=== PATIENT | female | born 1970 | race Caucasian/White ===

== ENCOUNTER 2017-02-07 08:25 | Emergency (ER) | payer OTHER ==
[2017-02-07 08:33] VITALS: BP 141/71; PULSE 71; TEMP 98; BMI 38.0
--- NOTE | 2017-02-07 09:27 | PDOC ---
History of Present Illness - General Chief Complaint: Injury Stated Complaint: INJURY/lac Time Seen by Provider: 02/07/17 09:23 History Source: Patient Exam Limitations: No Limitations - History of Present Illness Initial Comments: CHIEF COMPLAINT: 46 y/o afebrile female with PMH NIDDM here with laceration to her right arm. HISTORY OF PRESENT ILLNESS: The patient accidentally cut herself with a knife at work this morning. She is not up to date on tetanus. She denies all other symptoms and complaints. Vital signs on arrival are within normal limits. REVIEW OF SYSTEMS: GENERAL/CONSTITUTIONAL: No fever/chills. No weakness. No weight change. MUSCULOSKELETAL: No joint or muscle swelling or pain. No neck or back pain. SKIN: +laceration to right arm. NEUROLOGIC: No headache, vertigo, loss of consciousness, or loss of sensation. PHYSICAL EXAM: VITAL_SIGNS: within normal limits GENERAL_APPEARANCE: alert, cooperative, no obvious discomfort. MENTAL_STATUS: speech clear, oriented X 3, responds appropriately to questions. NEURO: motor intact and sensory intact in injured extremity. EXTREMITIES: 0.5cm linear, very superficial laceration to right medial, distal forearm without active bleeding. Margins well approximated. SKIN: warm, dry, good color. Past History - Past Medical History Allergies/Adverse Reactions: Allergies Allergy/AdvReac Type Severity Reaction Status Date / Time No Known Drug Allergies Allergy Verified 02/07/17 08:29 Home Medications: Ambulatory Orders NK [No Known Home Medication] 02/07/17 Anemia: No Asthma: No Cancer: No Cardiac Disorders: No CVA: No COPD: No CHF: No Dementia: No Diabetes: Yes GI Disorders: Yes Disorders: No HTN: Yes Hypercholesterolemia: No Liver Disease: No Seizures: No Thyroid Disease: No - Surgical History Abdominal Surgery: No Appendectomy: No Cardiac Surgery: No Cholecystectomy: No Lung Surgery: No Neurologic Surgery: No - Psycho/Social/Smoking Cessation Hx Anxiety: No Suicidal Ideation: No Smoking History: Never smoked Have you smoked in the past 12 months: No Information on smoking cessation initiated: No Hx Alcohol Use: No Drug/Substance Use Hx: No Substance Use Type: None Hx Substance Use Treatment: No *Physical Exam - Vital Signs Last Vital Signs Temp Pulse Resp BP Pulse Ox 98.0 F 71 18 141/71 100 02/07/17 08:31 02/07/17 08:31 02/07/17 08:31 02/07/17 08:31 02/07/17 08:31 Procedures - Laceration/Wound Repair Right Medial Arm Wound Length: to 2.5 cm Wound Explored: clean Wound's Depth, Shape: superficial, linear Irrigated w/ Saline: Yes Betadine Prep: No Wound Repaired With: Dermabond Medical Decision Making - Medical Decision Making A/P: 46 y/o female with superficial laceration to right forearm. Plan is as follows: 1. lac repair 2. Tetanus Pt tolerated lac repair well. Instructed her not to put moisturizers, lotions or oils on area. Informed her she is UTD on tetanus for 10 years. Pt instructed to return to the ER with any worsening or concerning symptoms. The patient verbalizes understanding of all instructions, has no further questions and is awaiting discharge. *DC/Admit/Observation/Transfer Diagnosis at time of Disposition: Laceration - Discharge Dispostion Disposition: HOME Condition at time of disposition: Improved - Patient Instructions Printed Discharge Instructions: DI for Laceration Repair With Dermabond Additional Instructions: Discharge Instructions: -You were given a tetanus shot today; you are now covered for 10 years -Do not apply any moisturizers, oils or lotions to the area that was glued on your arm -Return to the ER with any worsening or concerning symptoms. Instrucciones de nilesh: - Le dieron un tiro de ttanos hoy; Ya est cubierto por 10 aos -No aplique cremas hidratantes, aceites o lociones en el yissel que fue pegada en truong brazo -Vuelva a la hector de emergencias con cualquier empeoramiento o sntomas relacionados. Print Language: CZECH - Post Discharge Activity Work/School Note: Back to Work
[2017-02-07] MEDS ORDERED: TETANUS AND DIPHTHERIA TOXOID 0.5 ML DISP.SYRIN IM ONE (09:50)
== END 2017-02-07 10:01 | disposition home or self-care (01) ==
LOC: JERFT 08:25
PROC: 0HQDXZZ Repair Right Lower Arm Skin, External Approach (ICD-10-PCS; principal; 2017-02-07)
DX: S51.811A Laceration without foreign body of right forearm, initial encounter (principal); W26.0XXA Contact with knife, initial encounter; Y93.G3 Activity, cooking and baking; Y92.59 Other trade areas as the place of occurrence of the external cause; Y99.0 Civilian activity done for income or pay
CPT/HCPCS: 99281-25

== ENCOUNTER 2020-04-11 12:00 | Emergency (ER) | payer OTHER ==
[2020-04-11 12:16] VITALS: BP 143/87; PULSE 18; TEMP 98.1; BMI 41.0
[2020-04-11] MEDS ORDERED: KETOROLAC TROMETHAMINE 30 MG/1 ML VIAL IM ONE (12:33)
[2020-04-11] MEDS ORDERED: KETOROLAC TROMETHAMINE 30 MG/1 ML VIAL ONE (12:35)
--- NOTE | 2020-04-11 12:42 | PDOC ---
History of Present Illness - General Chief Complaint: Pain, Acute Stated Complaint: PAIN Time Seen by Provider: 04/11/20 12:21 History Source: Patient Exam Limitations: No Limitations - History of Present Illness Initial Comments: 04/11/20 12:38 CHIEF COMPLAINT: Lower back pain radiating to the left leg, left shoulder pain status post fall 03/23 HISTORY OF PRESENT ILLNESS: 50-year-old lady with past medical history of NIDDM, hypertension presents emergency department for reevaluation of lower back and left shoulder pain status post fall which occurred on 03/23. Patient was seen and evaluated at another facility had negative x-rays was treated with Flexeril and ibuprofen as an outpatient. Patient reports the medicine worked initially but is still having some minor pain which she rates as a 4/10. Patient is requesting reevaluation but has not followed up with her primary doctor or orthopedist as recommended by previous ER visit. Patient reports the pain is in her posterior left shoulder as well as her lower back which radiates down the left lower extremity. Patient denies any saddle anesthesia, urinary retention, incontinence of urine or stool, foot drop, history of IV drug use or cancer. REVIEW OF SYSTEMS: GENERAL: Afebrile, denies any weakness RESPIRATORY: No cough, wheezing, or hemoptysis. CARDIAC: No chest pain or shortness of breath MUSCULOSKELETAL: Pain to midline lower back. No point tenderness. Left posterior shoulder pain. SKIN : No erythema, no bruising, no deformity. GI/: Denies any abdominal pain, no urinary difficulty, incontinence or urinary retention. RECTAL: Denies any difficulty this A.m. NEUROLOGICAL: Denies any numbness or tingling. No neurosensory deficits. PHYSICAL EXAM: GENERAL: The patient is awake, alert, and fully oriented, in no acute distress. RESPIRATORY: Lungs clear bilaterally, no rhonchi wheezes or crackles CARDIAC: S1-S2 audible, no murmur rub or gallop MUSCULOSKELETAL: Pain to midline lower back without no tingling or sensory deficit. Less than 2 second cap refill, +2 pedal pulses. Full range of motion of left shoulder. No bony deformity, crepitus, step-off or subcutaneous emphysema is palpated. Ambulatory with steady gait. Able to perform straight leg raises without difficulty. No spinal point tenderness. Normal reflexive and no deficits to sensation or strength. GI/: Abdomen soft, nontender, nondistended. No rebound tenderness. No masses palpable. RECTAL: Deferred patient with no neurological findings SKIN: Warm, Dry, normal turgor, no erythema, no edema no bruising. Past History - Medical History Allergies/Adverse Reactions: Allergies Allergy/AdvReac Type Severity Reaction Status Date / Time No Known Drug Allergies Allergy Verified 02/07/17 08:29 Home Medications: Ambulatory Orders Methylprednisolone [Medrol Dose Arron] 4 mg PO ASDIR #21 tablet 04/11/20 Anemia: No Asthma: No Cancer: No Cardiac Disorders: No CVA: No COPD: No CHF: No Dementia: No Diabetes: Yes GI Disorders: Yes Disorders: No HTN: Yes Hypercholesterolemia: No Liver Disease: No Seizures: No Thyroid Disease: No - Surgical History Abdominal Surgery: No Appendectomy: No Cardiac Surgery: No Cholecystectomy: No Lung Surgery: No Neurologic Surgery: No - Reproductive History Is Patient Now?: No - Psycho-Social/Smoking History Smoking History: Never smoked Have you smoked in the past 12 months: No - Substance Abuse Hx (Audit-C & DAST Scrn) How often the patient has a drink containing alcohol: Never Score: In Men: 4 or > Positive; In Women: 3 or > Positive: 0 Screen Result (Pos requires Nsg. Audit-10AR): Negative *Physical Exam - Vital Signs Last Vital Signs Temp Pulse Resp BP Pulse Ox 98.1 F 18 L 14 143/87 99 04/11/20 12:14 04/11/20 12:14 04/11/20 12:14 04/11/20 12:14 04/11/20 12:14 Medical Decision Making - Medical Decision Making 04/11/20 12:42 A/P: 50-year-old woman for reevaluation of left shoulder and lower back pain status post fall which occurred on 03/23 Physical exam is unremarkable Toradol 30 mg IM now Discharge home with orthopedic referral and prescription for Medrol Dosepak. Was explained to the patient that she should follow-up with orthopedics for continued evaluation and management of her pain. Work note provided for 3 days. Patient is aware that if she needs further time off of work, she is to be reevaluated by orthopedist or her primary doctor in that future work excuses will not be provided to the emergency department for the same complaint. I discussed the physical exam findings, ancillary test results and final diagnoses with the patient. I answered all of the patient's questions. The patient was satisfied with the care received and felt comfortable with the discharge plan and treatment plan. The patient will call their primary care physician within 24 hours to arrange follow-up and will return to the Emergency Department with any new, persistent or worsening symptoms. Portions of this note have been documented using voice recognition software. As a result, errors may occur in the director of security process. Effort has been made to correct all grammatical and director of security error, but some may have been missed which may produce sporadic inaccurate director of security or nonsensical phrases. Discharge - Discharge Information Problems reviewed: Yes Clinical Impression/Diagnosis: Left shoulder pain Qualifiers: Chronicity: acute Qualified Code(s): M25.512 - Pain in left shoulder Lower back pain Qualifiers: Chronicity: acute Back pain laterality: midline Sciatica presence: with sciatica Sciatica laterality: sciatica of left side Qualified Code(s): M54.42 - Lumbago with sciatica, left side Condition: Fair Disposition: HOME - Admission No - Additional Discharge Information Prescriptions: Methylprednisolone [Medrol Dose Arron] 4 mg PO ASDIR #21 tablet - Follow up/Referral - Patient Discharge Instructions Additional Instructions: [email or web address] You be given a referral for an orthopedist. Call to schedule appointment for reevaluation of your pain. Your emergency department visit is incomplete until you follow-up with your regular doctor. Take Tylenol 2-500 mg tablets every 6 hours as needed for pain. Take Motrin 3-200 mg tablets every 6 hours as needed for pain. These medications do not require a prescription as they are [id number]. Take Medrol Dosepak as directed. Apply ice to affected areas to help relieve pain. Do not leave ice on for more than 20 minutes at a time. Return to the emergency department for any new or worsening symptoms. Thank you very much for choosing us to provide your emergent health care needs. - Post Discharge Activity Work/Back to School Note: Back to Work
== END 2020-04-11 12:45 | disposition home or self-care (01) ==
LOC: JERFT 12:00
PROC: 3E0233Z Introduction of Anti-inflammatory into Muscle, Percutaneous Approach (ICD-10-PCS; principal; 2020-04-11)
DX: M25.512 Pain in left shoulder (principal); M54.42 Lumbago with sciatica, left side
CPT/HCPCS: 99284-25

== ENCOUNTER 2021-01-03 18:00 | Emergency (ER) | payer OTHER ==
[2021-01-03 18:31] VITALS: BP 142/81; PULSE 90; TEMP 98.2; BMI 36.6
[2021-01-03] MEDS ORDERED: CEPHALEXIN MONOHYDRATE 500 MG CAPSULE (UD) PO ONE (19:10)
[2021-01-03] MEDS ORDERED: CEPHALEXIN MONOHYDRATE 500 MG CAPSULE (UD) ONE (19:17)
== END 2021-01-03 19:36 | disposition home or self-care (01) ==
LOC: JERFT 18:00
DX: L02.416 Cutaneous abscess of left lower limb (principal)
CPT/HCPCS: 87070; 87186; 87205; 99283-25

== ENCOUNTER 2021-02-04 14:37 | Emergency (ER) | payer OTHER ==
[2021-02-04 14:55] VITALS: BP 147/90; PULSE 100; TEMP 98.2; BMI 37.0
[2021-02-04] MEDS ORDERED: IBUPROFEN 400 MG TABLET (FP) PO ONE ×2 (15:07→15:08)
== END 2021-02-04 15:52 | disposition home or self-care (01) ==
LOC: JER 14:37
DX: S40.022A Contusion of left upper arm, initial encounter (principal)
CPT/HCPCS: 73030-TC-LT-FY; 73070-TC-LT-FY; 73090-TC-LT-FY; 99285-25

== ENCOUNTER 2021-10-28 11:43 | Emergency (ER) | payer OTHER ==
[2021-10-28] MEDS ORDERED: IBUPROFEN 400 MG TABLET (FP) PO ONE ×2 (11:47→12:02)
[2021-10-28 11:54] VITALS: BP 187/82; PULSE 100; TEMP 98; BMI 35.9
== END 2021-10-28 15:10 | disposition home or self-care (01) ==
LOC: FER 11:43
DX: M54.50 Low back pain, unspecified (principal); M25.561 Pain in right knee; M25.562 Pain in left knee; W19.XXXA Unspecified fall, initial encounter
CPT/HCPCS: 72100-TC-FY; 73562-TC-LT-FY; 73562-TC-RT-FY; 99284-25

== ENCOUNTER 2022-12-01 18:27 | Emergency (ER) | payer OTHER ==
[2022-12-01 18:43] VITALS: BP 145/66; PULSE 84; RESP 16; TEMP 97.9; BMI 42.2
[2022-12-01] MEDS ORDERED: ACETAMINOPHEN 1000 MG/100 ML BAG IVPB ONE (19:25)
[2022-12-01] MEDS ORDERED: ONDANSETRON 4 MG/2 ML VIAL IVPUSH ONE (19:25)
[2022-12-01] MEDS ORDERED: FAMOTIDINE 20 MG/50 ML IVPB 20 MG/50 ML MG IVPB ONE ×2 (19:25→19:32)
[2022-12-01] MEDS ORDERED: ACETAMINOPHEN INJECTION 100 ML IVPB ONE (19:32)
[2022-12-01] MEDS ORDERED: ONDANSETRON 4 MG/2 ML VIAL ONE (19:32)
[2022-12-01 19:58] LABS: ALBUMIN 2.6 g/dl (3.4-5.0); BILIRUBIN,TOTAL 0.5 mg/dl (0.2-1); CALCIUM 8.2 mg/dl (8.5-10); CREATININE 0.8 mg/dl (0.55-1.3); TOT PROT 5.7 g/dl (6.4-8.2)
[2022-12-01 20:53] LABS: BASO % 0.6 % (0-2.0); EOS % 2.2 % (0-4.5); HEMATOCRIT 36.8 % (32.4-45.2); HEMOGLOBIN 12.1 GM/dL (10.7-15.3); LYMPH % 29.7 % (8-40); MCH 30.1 pg (25.7-33.7); MEAN CELL VOLUME 91.3 fl (80-96); MEAN PLT VOLUME 9.4 fl (7.5-11.1); MONO % 6.2 % (3.8-10.2); NEUT % 61.3 % (42.8-82.8); PLATELET COUNT 284 10^3/uL (134-434); RBC 4.03 M/mm3 (3.60-5.2); RDW 14.5 % (11.6-15.6); WHITE BLOOD COUNT 9.4 K/mm3 (4.0-10.0)
== END 2022-12-01 23:16 | disposition home or self-care (01) ==
LOC: FER 18:27
PROC: 3E033GC Introduction of Other Therapeutic Substance into Peripheral Vein, Percutaneous Approach (ICD-10-PCS; principal; 2022-12-01)
DX: R10.13 Epigastric pain (principal)
CPT/HCPCS: 36415; 71045-TC-FY; 74177-TC; 80053; 81003; 83690; 84484; 85025; 87086; 93005; 99285-25; Q9967